=== PATIENT | male | born 1950 | race American Indian/Alaskan Native ===

== ENCOUNTER 2020-01-06 20:56 | Emergency (ER) | payer MEDICARE ==
--- NOTE | 2020-01-06 21:02 | Emergency Department Report ---
HPI - General Time Seen by Provider: 01/06/20 21:00 - HPI HPI: Charge nurse triage/room 20 The patient is a 69-year-old male present with a chief complaint of headache and left-sided weakness. Patient states at approximately 19:30 he developed a headache and left-sided weakness. The patient's neighbor who is a nurse assessed the patient. Per EMS the patient has a dense left hemiparesis. Patient only complains of a headache ED Past Medical Hx - Past Medical History Hx Hypertension: Yes ED Review of Systems ROS: Stated complaint: STROKE Other details as noted in HPI Physical Exam - Physical Exam Physical Exam: GENERAL: The patient is well-developed well-nourished male lying on stretcher not appearing to be in acute distress. [] HEENT: Normocephalic. Atraumatic. Extraocular motions are intact. Patient has moist mucous membranes. NECK: Supple. Trachea midline CHEST/LUNGS: Clear to auscultation. There is no respiratory distress noted. HEART/CARDIOVASCULAR: Regular. There is no tachycardia. There is no gallop rub or murmur. ABDOMEN: Abdomen is soft, nontender. Patient has normal bowel sounds. There is no abdominal distention. SKIN: There is no rash. There is no edema. There is no diaphoresis. NEURO: The patient is awake, alert, and oriented. The patient is cooperative. Cranial nerves II through XII grossly intact except for cranial nerve #11 on the left. Patient unable to move left upper extremity or left lower extremity. The patient has normal speech. GCS 15 MUSCULOSKELETAL: There is no evidence of acute injury. ED Course - Consultations Consultation #1: 01/06/20 21:08 Neurosurgery called 01/06/20 21:[address] Ellis-states patient needs to be transferred to a [facility] as we are not equipped to perform EVDs at this hospital Consultation #2: 01/06/20 21:14 [place] transfer line called 01/06/20 21:20 Spoke with transfer center. Will contact neurosurgeon and call back 01/06/20 21:[address] Haq- will accept patient in transfer to [facility]. Recommend maintaining systolic blood pressure less than 160. ED Medical Decision Making - Lab Data Result diagrams: 01/06/20 21:15 01/06/20 21:15 Laboratory Tests 01/06/20 01/06/20 01/06/20 21:15 21:15 21:15 WBC 4.6 RBC 5.44 H Hgb 14.9 Hct 45.3 MCV 83 L MCH 28 MCHC 33 RDW 14.4 Plt Count 89 L Lymph % (Auto) 26.2 Cascade % (Auto) 13.0 H Eos % (Auto) 2.2 Baso % (Auto) 0.7 Lymph # (Auto) 1.2 Cascade # (Auto) 0.6 Eos # (Auto) 0.1 Baso # (Auto) 0.0 Seg Neutrophils % 57.9 Seg Neutrophils # 2.7 PT 13.1 INR 0.97 APTT 30.1 Thrombin Time 16.3 VBG pH Sodium 137 Potassium 4.4 Chloride 99.0 Carbon Dioxide 25 Anion Gap 17 BUN 24 H Creatinine 1.5 H Estimated GFR 56 BUN/Creatinine Ratio 16 Glucose 107 H Calcium 9.5 01/06/20 21:15 WBC RBC Hgb Hct MCV MCH MCHC RDW Plt Count Lymph % (Auto) Cascade % (Auto) Eos % (Auto) Baso % (Auto) Lymph # (Auto) Cascade # (Auto) Eos # (Auto) Baso # (Auto) Seg Neutrophils % Seg Neutrophils # PT INR APTT Thrombin Time VBG pH 7.382 Sodium Potassium Chloride Carbon Dioxide Anion Gap BUN Creatinine Estimated GFR BUN/Creatinine Ratio Glucose Calcium - EKG Data -: EKG Interpreted by Ks EKG shows normal: sinus rhythm Rate: normal - EKG Data When compared to previous EKG there are: previous EKG unavailable Interpretation: other (No ischemic changes seen) - Radiology Data Radiology results: report reviewed (CT head), image reviewed (CT head) [address] [address] Cat Scan Report Signed Patient: DAX RUIZ MR#: [id number] : 1950 Acct:[id number] Age/Sex: 69 / M ADM Date: 01/06/20 Loc: ED Attending Dr: Ordering Physician: SHANTHI REMY MD Date of Service: 01/06/20 Procedure(s): CT head/brain wo con Accession Number(s): [id number] cc: SHANTHI REMY MD CT head/brain wo con INDICATION / CLINICAL INFORMATION: 69 years Male; Headache, left-sided hemiparesis. TECHNIQUE: Routine CT head without contrast. All CT scans at this location are performed using CT dose reduction for ALARA by means of automated exposure control. COMPARISON: None. FINDINGS: BRAIN / IN TRACRANIAL CONTENTS: Right gangliocapsular hemorrhage seen anteriorly and inferiorly, with extension into the right lateral ventricle. The parenchymal area of hemorrhage measures approximately 2.4 cm transversely by 1.2 cm craniocaudally by 2.5 cm AP. Blood products are also seen in the third ventri talisha, as well as portions of the fourth ventricle. Minimal blood products are seen near the foramen of Edwards in the left lateral ventricle. The temporal horn the right lateral ventricle is minimally dilated, as is that of the left. Early entrapment might be a consideration. Mild focal mass effect seen. Only minimal right to left midline shift noted at this time. Otherwise, no acute hemorrhage, mass effect, midline shift, hydrocephalus, or acute, large territorial infarct. No chronic infarct or atrophy appreciated. No significant white matter ab normality. CRANIOCERVICAL JUNCTION: No significant abnormality. ORBITS: No significant abnormality of visualized orbits. SINUSES / MASTOIDS: Mild mucosal thickening seen in the ethmoids. ADDITIONAL FINDINGS: Prominent soft tissue is seen in the roof the nasopharynx, presumably related to reactive adenoidal tissue. Please clinically correlate. IMPRESSION: 1. Parenchymal hemorrhage seen in the right gangliocapsular region with intraventricular extension, as described above. Hypertensive hemorrhages be the most likely etiology. CODE STROKE: Exam Completed (BASEBALL COACH/CDT): 01/06/2020 813 PM Exam Reviewed (BASEBALL COACH/CDT): 8:17 PM Time of Communication (BASEBALL COACH/CDT): 8:23 PM Licensed Practitioner Receiving Report: Dr. Remy Signer Name: Ki Viera MD, III Signed: 01/06/2020 9:25 PM Workstation Name: [id number] Transcribed By: HR Dictated By: Ki Viera MD Electronically Authenticated By: Ki Viera MD Signed Date/Time: 01/06/202124 DD/ 16 TD/TT: - Differential Diagnosis CVA Critical Care Time: Yes Critical care time in (mins) excluding proc time.: 30 Critical care attestation.: If time is entered above; I have spent that time in minutes in the direct care of this critically ill patient, excluding procedure time. ED Disposition Clinical Impression: Intracranial hemorrhage, Thrombocytopenia Disposition: DC/TX-70 ANOTHER TYPE HLTHCARE Is pt being admited?: No Does the pt Need Aspirin: No Condition: Serious Time of Disposition: 23:41 (Awaiting transport)
[2020-01-06] MEDS ORDERED: levETIRAcetam 1000 MG/NS 0.75% 1,000 MG/100 ML BAG IV ONE (21:15)
--- NOTE | 2020-01-06 21:15 | Consultation ---
History of Present Illness Consult date: 01/06/20 History of present illness: [facility] Date of Service: 01/06/2020 20:56:21 Impression: Non traumatic intracerebral Hemorrhage. Comments/Sign-Out: Patient presented with left sided weakness. HCT showed an acute intracerebral hemorrhage. No alteplase was offered due to bleed. Due to concern of intraventricular extension neurosurgical evaluation is recommended Metrics: Last Known Well: 01/06/2020 19:30:00 [facility] Notification Time: 01/06/2020 20:55:51 Arrival Time: 01/06/2020 20:56:00 Stamp Time: 01/06/2020 20:56:21 Time First Login Attempt: 01/06/2020 20:58:51 Video Start Time: 01/06/2020 20:58:51 Symptoms: Lt sided weakness NIHSS Start Assessment Time: 01/06/2020 21:00:00 Patient is not a candidate for Alteplase/Activase. Patient was not deemed candidate for Alteplase/Activase thrombolytics because of Current or Previous ICH. Video End Time: 01/06/2020 21:13:32 CT head was reviewed. Clinical Presentation is not Suggestive of Large Vessel Occlusive Disease ED Physician notified of diagnostic impression and management plan on 01/06/2020 21:11:23 Our recommendations are outlined below. Recommendations: Activate Stroke Protocol Admission/Order Set Stroke/Telemetry Floor Neuro Checks Bedside Swallow Eval DVT Prophylaxis IV Fluids, Normal Saline Head of Bed 30 Degrees Euglycemia and Avoid Hyperthermia (PRN Acetaminophen) Hold Antithrombotics for Now Routine Consultation with Inhouse Neurology for Follow up Care Sign Out: Discussed with Emergency Department Provider History of Present Illness: Patient is a 69 year old Male. Patient was brought by EMS for symptoms of Lt sided weakness Past medical History of Hypertension, Diabetes Mellitus presents with left sided weakness. Last seen normal was 1900. Once he had trouble walking or using his left side. EMS was called for further evaluation. No previous history of stroke. There is no history of hemorrhagic complications or intracranial hemorrhage. There is no history of Recent Anticoagulants. There is no history of recent major surgery. There is no history of recent stroke. Past Medical History: Hypertension Diabetes Mellitus Antiplatelet use: ASA Examination: BP(140/80), Pulse(89), Blood Glucose(89) 1A: Level of Consciousness - Alert; keenly responsive + 0 1B: Ask Month and Age - Both Questions Right + 0 1C: Blink Eyes & Squeeze Hands - Performs Both Tasks + 0 2: Test Horizontal Extraocular Movements - Partial Gaze Palsy: Can Be Overcome + 1 3: Test Visual [place]iff - No Visual Loss + 0 4: Test Facial Palsy (Use Grimace if Obtunded) - Minor paralysis (flat nasolabial fold, smile asymmetry) + 1 5A: Test Left Arm Motor Drift - No Drift for 10 Seconds + 0 5B: Test Right Arm Motor Drift - No Drift for 10 Seconds + 0 6A: Test Left Leg Motor Drift - No Drift for 5 Seconds + 0 6B: Test Right Leg Motor Drift - Drift, hits bed + 2 7: Test Limb Ataxia (FNF/Heel-Ulloa) - No Ataxia + 0 8: Test Sensation - Mild-Moderate Loss: Less Sharp/More Dull + 1 9: Test Language/Aphasia - Normal; No aphasia + 0 10: Test Dysarthria - Mild-Moderate Dysarthria: Slurring but can be understood + 1 11: Test Extinction/Inattention - No abnormality + 0 NIHSS Score: 6 Patient/Family was informed the Neurology Consult would happen via TeleHealth consult by way of interactive audio and video telecommunications and consented to receiving care in this manner. Dr Brodie Kyle-[facility] Case [id number] Medications and Allergies Allergies Allergy/AdvReac Type Severity Reaction Status Date / Time ibuprofen [From Motrin] AdvReac Swelling Verified 01/06/20 21:01
[2020-01-06 21:27] LABS: Basophils % (Auto) 0.7 % (0.0-1.8); Eosinophils # (Auto) 0.1 K/mm3 (0.0-0.4); Eosinophils % (Auto) 2.2 % (0.0-4.3); Hematocrit 45.3 % (35.5-45.6); Hemoglobin 14.9 gm/dl (11.8-15.2); Lymphocytes # (Auto) 1.2 K/mm3 (1.2-5.4); Lymphocytes % (Auto) 26.2 % (13.4-35.0); Mean Corpuscular HGB Conc 33 % (32-34); Mean Corpuscular Volume 83 fl (84-94); Monocytes # (Auto) 0.6 K/mm3 (0.0-0.8); Red Blood Count 5.44 M/mm3 (3.65-5.03); Red Cell Distribution Width 14.4 % (13.2-15.2)
[2020-01-06 21:28] LABS: Platelet Count 89 K/mm3 (140-440)
--- NOTE | 2020-01-06 21:30 | Cat Scan Report ---
CT head/brain wo con INDICATION / CLINICAL INFORMATION: 69 years Male; Headache, left-sided hemiparesis. TECHNIQUE: Routine CT head without contrast. All CT scans at this location are performed using CT dos e reduction for ALARA by means of automated exposure control. COMPARISON: None. FINDINGS: BRAIN / INTRACRANIAL CONTENTS: Right gangliocapsular hemorrhage seen anteriorly and inferiorly, with extension into the right lateral ventricle. The parenchymal area of hemorrhage measures approximately 2.4 cm transversely by 1.2 cm craniocaudally by 2.5 cm AP. Blood products are also seen in the third ventricle, as well as portions of the fourth ventricle. Min imal blood products are seen near the foramen of Edwards in the left lateral ventricle. The temporal h orn the right lateral ventricle is minimally dilated, as is that of the left. Early entrapment might be a consideration. Mild focal mass effect seen. Only minimal right to left midline shift noted at this time. Otherwise, no acute hemorrhage, mass effect, midline shift, hydrocephalus, or acute, large territori al infarct. No chronic infarct or atrophy appreciated. No significant white matter abnormality. CRANIOCERVICAL JUNCTION: No significant abnormality. ORBITS: No significant abnormality of visualized orbits. SINUSES / MASTOIDS: Mild mucosal thickening seen in the ethmoids. ADDITIONAL FINDINGS: Prominent soft tissue is seen in the roof the nasopharynx, presumably related to reactive adenoidal tissue. Please clinically correlate. IMPRESSION: 1. Parenchymal hemorrhage seen in the right gangliocapsular region with intraventricular extension, a s described above. Hypertensive hemorrhages be the most likely etiology. CODE STROKE: Exam Completed (PRODUCT TEST ENGINEER/CDT): 01/06/2020 813 PM Exam Reviewed (PRODUCT TEST ENGINEER/CDT): 8:17 PM Time of Communication (PRODUCT TEST ENGINEER/CDT): 8:23 PM Licensed Practitioner Receiving Report: Dr. Montemayor Signer Name: Ki Viera MD, III Signed: 01/06/2020 9:25 PM Workstation Name: [id number]
[2020-01-06 21:47] LABS: INR 0.97 (0.87-1.13)
[2020-01-06 21:48] LABS: Calcium 9.5 mg/dL (8.4-10.2); Partial Thromboplastin Time 30.1 Sec. (24.2-36.6); Thrombin Time 16.3 Sec. (15.1-19.6)
[2020-01-07 00:18] VITALS: BP 138/83
== END 2020-01-07 01:13 | disposition other institution (70) ==
LOC: ED 20:56
DX: I62.9 Nontraumatic intracranial hemorrhage, unspecified (principal); D69.6 Thrombocytopenia, unspecified; I10 Essential (primary) hypertension
CPT/HCPCS: 36415; 70450; 80048; 82805; 85025; 85610; 85670; 85730; 93005; 96374; 99291; J1953